=== PATIENT | female | born 1990 | race Caucasian/White ===

== ENCOUNTER 2019-08-13 13:05 | Emergency (ER) | payer OTHER, SELFPAY ==
[2019-08-13 13:16] VITALS: BP 112/64; PULSE 78; RESP 18; TEMP 36.6; O2SAT 98
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
== END 2019-08-13 16:53 | disposition home or self-care (01) ==
PROVIDERS: Emergency Provider Physician Assistant
DX: S01.512A Laceration without foreign body of oral cavity, initial encounter (principal); V17.0XXA Pedal cycle driver injured in collision with fixed or stationary object in nontraffic accident, initial encounter
CPT/HCPCS: 12013; 99283